=== PATIENT | female | born 1950 | race Caucasian/White ===

== ENCOUNTER → 2017-11-12 | Outpatient (CLI) | payer MEDICARE, OTHER ==
[~2017-11-12] MED LIST: ALLOPURINOL 10100 M1 PO; GLIPIZIDE 10 MG10 MG PO; JANUVIA100 MG PO; KEFLEX500 MG PO; LANTUS100 UNIT/M SUBQ; MAXZIDE-25 MG1 EACH PO; NORCO 5-325 TA1 EACH PO; OXYCODONE HCL E10 MG PO; PAXIL10 MG; TIZANIDINE HCL4 MG PO
== END ==
LOC: M.RAD 15:11
DX: M77.52 Other enthesopathy of left foot and ankle (principal); I82.402 Acute embolism and thrombosis of unspecified deep veins of left lower extremity; I48.91 Unspecified atrial fibrillation; N28.9 Disorder of kidney and ureter, unspecified